=== PATIENT | female | born 1965 | race Caucasian/White ===

== ENCOUNTER 2017-08-26 17:10 | Inpatient (IN) | payer OTHER ==
[~2017-08-26] VITALS: Ht 157.5 cm; Wt 51.7 kg
[2017-08-26 17:24] VITALS: BP_SYST 103
[2017-08-26 17:44] LABS: BILIRUBIN,URINE NEGATIVE (NEGATIVE); BLOOD, URINE 1+ (NEGATIVE); CLARITY/URINE CLEAR (CLEAR); COLOR,URINE YELLOW (YELLOW); GLUCOSE,URINE TRACE (NEGATIVE); KETONES,URINE NEGATIVE (NEGATIVE); LEUKOCYTE ESTERASE ,URINE NEGATIVE (NEGATIVE); NITRITE, URINE NEGATIVE (NEGATIVE); PH,URINE 5.5 (5.0-8.0); PROTEIN URINE 2+ (NEGATIVE); UROBILINOGEN,URINE 0.2 (0.2-1.0)
[2017-08-26] MEDS ORDERED: NACL 0.9% 1,000 ML IV ONE (17:45)
[2017-08-26] MEDS ORDERED: KETOROLAC TROMETHAMINE 30 MG VIAL IVP ONE (17:45)
[2017-08-26 18:00] LABS: BACTERIA,URINE FEW /HPF (None Seen); RBC,URINE 0-3 /HPF (0-3)
[2017-08-26 18:01] LABS: MUCUS,URINE None Seen /LPF (None Seen); YEAST,URINE None Seen /HPF (None Seen)
[2017-08-26 18:23] LABS: BASOPHILS % (AUTO) 0.1 % (0.0-2.0); EOSINOPHILS # (AUTO) 0.2 K/uL (0.0-0.4); EOSINOPHILS % (AUTO) 2.8 % (0.0-4.0); HEMATOCRIT 38.5 % (36-48); HEMOGLOBIN 13.1 g/dL (12.0-16.0); LYMPHOCYTES # (AUTO) 0.2 K/uL (1.0-5.5); LYMPHOCYTES % (AUTO) 2.3 % (20.5-51.5); MEAN CORPUSCULAR HEMOGLOBIN 31 pg (27-31); MEAN CORPUSCULAR HGB CONC 34 % (32-36); MEAN CORPUSCULAR VOLUME 90 fL (79.0-98.0); MONOCYTES # (AUTO) 0.1 K/uL (0.0-1.0); NEUTROPHILS # (AUTO) 6.8 K/uL (1.8-7.7); NEUTROPHILS % (AUTO) 92.8 % (40.0-70.0); PLATELET COUNT (AUTO) 190 K/uL (130-430); RED BLOOD CELL COUNT(AUTO) 4.25 MIL/uL (4.2-6.2); RED CELL DISTRIBUTION WIDTH 12.2 % (9.0-15.0); WHITE BLOOD COUNT (AUTO) 7.3 K/uL (4.8-10.8)
[2017-08-26 18:26] LABS: CALCIUM 8.3 mg/dL (8.4-11.0); CREATININE 0.86 mg/dL (0.55-1.30)
[2017-08-26] MEDS ORDERED: ACETAMINOPHEN 500 MG TABLET PO ONE (18:30)
[2017-08-26 18:31] LABS: POTASSIUM 2.9 mmol/L (3.5-5.1)
[2017-08-26 18:34] LABS: TOTAL BILIRUBIN 0.3 mg/dL (0.0-1.0)
[2017-08-26 18:35] LABS: ALBUMIN 3.2 g/dL (3.4-4.8)
[2017-08-26] MEDS ORDERED: KCL 20 mEq in 100 mL (PREMIX) 100 ML IV ONE (18:45)
[2017-08-26] MEDS ORDERED: cefTRIAXone 1 GM IVPB PREMIX 50 ML IV ONE (19:45)
[2017-08-26 20:07] VITALS: BP_SYST 100
[2017-08-26] MEDS ORDERED: ONDANSETRON HCL 4 MG/2 ML VIAL IVP PRN (20:15)
[2017-08-26] MEDS ORDERED: ACETAMINOPHEN 325 MG TABLET PO PRN (20:15)
[2017-08-26] MEDS: NACL 0.9% 1,000 ML IV SCH (21:35)
[2017-08-27 00:10] VITALS: BP_SYST 97
[2017-08-27] MEDS ORDERED: LORazepam 2 MG/ML VIAL IVP ONE ×2 (03:30→23:00)
[2017-08-27 08:00] VITALS: BP_SYST 99
[2017-08-27] MEDS: MORPHINE 2 MG/ML INJ. SYRINGE IVP PRN ×3 (09:58→20:29)
[2017-08-27] MEDS: NACL 0.9% 1,000 ML IV SCH ×2 (10:04→13:47)
[2017-08-27] MEDS ORDERED: NACL 0.9% 1,000 ML IV ONE (11:15)
[2017-08-27 12:09] LABS: BASOPHILS % (AUTO) 0.2 % (0.0-2.0); EOSINOPHILS # (AUTO) 0.2 K/uL (0.0-0.4); EOSINOPHILS % (AUTO) 7.6 % (0.0-4.0); HEMOGLOBIN 11.4 g/dL (12.0-16.0); LYMPHOCYTES # (AUTO) 0.4 K/uL (1.0-5.5); LYMPHOCYTES % (AUTO) 13.9 % (20.5-51.5); MEAN CORPUSCULAR HEMOGLOBIN 31 pg (27-31); MEAN CORPUSCULAR HGB CONC 34 % (32-36); MEAN CORPUSCULAR VOLUME 91 fL (79.0-98.0); MONOCYTES # (AUTO) 0.2 K/uL (0.0-1.0); MONOCYTES % (AUTO) 6.7 % (1.7-9.3); NEUTROPHILS # (AUTO) 2.1 K/uL (1.8-7.7); NEUTROPHILS % (AUTO) 71.6 % (40.0-70.0); PLATELET COUNT (AUTO) 174 K/uL (130-430); RED BLOOD CELL COUNT(AUTO) 3.72 MIL/uL (4.2-6.2); RED CELL DISTRIBUTION WIDTH 12.6 % (9.0-15.0); WHITE BLOOD COUNT (AUTO) 2.9 K/uL (4.8-10.8)
[2017-08-27 12:22] LABS: CALCIUM 7.9 mg/dL (8.4-11.0); CREATININE 0.68 mg/dL (0.55-1.30); POTASSIUM 3.7 mmol/L (3.5-5.1)
[2017-08-27 12:27] LABS: ALBUMIN 2.5 g/dL (3.4-4.8); TOTAL BILIRUBIN 0.2 mg/dL (0.0-1.0)
[2017-08-27 13:14] VITALS: BP_SYST 103
[2017-08-27 14:00] VITALS: BP_SYST 105
[2017-08-27 16:46] VITALS: BP_SYST 105
[2017-08-27] MEDS ORDERED: GENTAMICIN 120 MG/ ISO-OSM 100 ML PREMIX IV SCH (18:00)
[2017-08-27 20:00] VITALS: BP_SYST 127
[2017-08-27] MEDS ORDERED: cefTRIAXone 1 GM IVPB PREMIX 50 ML IV SCH (20:00)
[2017-08-28 00:04] VITALS: BP_SYST 106
[2017-08-28] MEDS: NACL 0.9% 1,000 ML IV SCH (01:17)
[2017-08-28 08:44] VITALS: BP_SYST 119
[2017-08-28] MEDS: MORPHINE 2 MG/ML INJ. SYRINGE IVP PRN (08:48)
[2017-08-28] MEDS ORDERED: ALPRAZolam 0.25 MG TABLET PO ONE (09:45)
[2017-08-28] MEDS ORDERED: CEPH-568 PO (10:26)
[2017-08-28] MEDS ORDERED: MOME17SP NS (10:27)
[2017-08-28] MEDS ORDERED: ALBMDI INH (10:28)
[2017-08-28 10:43] VITALS: BP_SYST 119
[2017-08-28] MEDS ORDERED: FLUTICASONE PROPIONATE 50 mCg/SPRAY 16 GM NS SCH (21:00)
== END 2017-08-28 14:28 | disposition home or self-care (01) | DRG 872 ==
LOC: SED 17:10 → SMU 19:23
PROVIDERS: ADMIT Internal Medicine Hospice and Palliative Medicine; ATTEND Internal Medicine Hospice and Palliative Medicine
DX: A41.9 Sepsis, unspecified organism (principal); N10 Acute pyelonephritis; J31.0 Chronic rhinitis; F41.9 Anxiety disorder, unspecified; Z79.899 Other long term (current) drug therapy
CPT/HCPCS: 36415; 80053; 81000-TC; 83605; 85025; 87040-TC; 87086; 96361; 96365; 96368; 96375; 99285; J0696; J1580; J1885; J2060; J2270; J3480; J7030